=== PATIENT | male | born 1965 | race African-American/Black ===

== ENCOUNTER 2016-06-04 04:33 | Emergency (ER) | payer MEDICAID ==
[~2016-06-04] VITALS: Ht 175.3 cm; Wt 69.0 kg
[2016-06-04 04:44] VITALS: BP 157/92
[2016-06-04] MEDS ORDERED: VISCOUS LIDOCAINE 2% 15 ML UDC PO STA (05:03)
[2016-06-04] MEDS ORDERED: MAGNESIUM/ALUMINUM HYDROXIDE/SIMETHICONE 30ML UDC PO STA (05:03)
[2016-06-04] MEDS ORDERED: DICYCLOMINE 10 MG/5 ML ORAL SYR PO STA (05:03)
[2016-06-04] MEDS ORDERED: ONDANSETRON 4MG ODT PO STA (05:03)
[2016-06-04] MEDS ORDERED: CYCLOBENZAPRINE 10MG TABLET PO ONE (05:45)
== END 2016-06-04 05:56 | disposition home or self-care (01) ==
LOC: ER 04:40
DX: K21.9 Gastro-esophageal reflux disease without esophagitis (principal); I10 Essential (primary) hypertension; F17.200 Nicotine dependence, unspecified, uncomplicated; F31.9 Bipolar disorder, unspecified; F12.10 Cannabis abuse, uncomplicated; Z98.890 Other specified postprocedural states
CPT/HCPCS: 99284; Q0162

== ENCOUNTER 2016-06-20 02:59 | Emergency (ER) | payer MEDICAID ==
[~2016-06-20] VITALS: Ht 172.7 cm; Wt 68.4 kg
[2016-06-20 04:08] VITALS: BP 152/87
[2016-06-20 04:13] LABS: BASOPHILS % 1.3 % (0.0-2.0); EOSINOPHILS % 3.6 % (0.0-5.0); HEMATOCRIT. 44.6 % (42.0-52.0); HEMOGLOBIN. 14.6 g/dL (14.0-18.0); LYMPHOCYTES % 31.8 % (20.0-50.0); MEAN CORPUSCULAR HEMOGLOBIN 31.6 pg (28.0-32.0); MEAN CORPUSCULAR HGB CONC 32.9 g/dL (31.0-37.0); MEAN CORPUSCULAR VOLUME 96.1 fL (80.0-94.0); MEAN PLATELET VOLUME 7.4 fl (7.4-10.4); MONOCYTES % 11.1 % (2.0-8.0); NEUTROPHILS % 52.2 % (40.0-76.0); PLATELET 239 x1000/uL (130-400); RED BLOOD CELL COUNT 4.64 mill/uL (4.7-6.1); RED CELL DISTRIBUTION WIDTH 13.6 % (11.6-14.6); WHITE BLOOD COUNT 6.7 x1000/uL (4.5-11.0)
[2016-06-20 04:19] LABS: PROTHROMBIN TIME 10.6 sec
[2016-06-20 04:28] LABS: ALANINE AMINOTRANSFERASE 20 IU/L (13-61); ALBUMIN 3.6 g/dL (3.4-5.0); ANION GAP 12; CALCIUM 8.5 mg/dL (8.5-10.1); CARBON DIOXIDE 26 mEq/L (21-32); CHLORIDE 110 mEq/L (98-107); INDEX HEMOLYSI 1 (1-3); INDEX ICTERIC 1 (1-4); INDEX LIPEMIC 1 (1-3); LIPASE 155 IU/L (73-393); TROPONIN I < 0.02 ng/mL (0.00-0.04); UREA NITROGEN BLOOD 16 mg/dL (7-21); eGFR > 60 mL/min (>60)
== END 2016-06-20 05:52 | disposition left against medical advice (07) ==
LOC: ER 05:52
DX: R07.89 Other chest pain (principal); Z53.21 Procedure and treatment not carried out due to patient leaving prior to being seen by health care provider
CPT/HCPCS: 36415; 71010; 80053; 83690; 84484; 85025; 85610; Z7610

== ENCOUNTER 2016-07-31 03:02 | Emergency (ER) | payer MEDICAID ==
[~2016-07-31] VITALS: Ht 172.7 cm; Wt 72.7 kg
[2016-07-31 03:09] VITALS: BP 152/97
[2016-07-31] MEDS ORDERED: ONDANSETRON HCL 4MG/2ML VIAL IV STA (04:19)
[2016-07-31] MEDS ORDERED: KETOROLAC 30MG/ML VIAL IV STA (04:19)
[2016-07-31] MEDS ORDERED: SODIUM CHLORIDE 0.9% 1,000 ML IV ONE (04:19)
[2016-07-31 04:38] LABS: BASOPHILS % 0.9 % (0.0-2.0); HEMATOCRIT. 40.6 % (42.0-52.0); HEMOGLOBIN. 13.4 g/dL (14.0-18.0); LYMPHOCYTES % 27.6 % (20.0-50.0); MEAN CORPUSCULAR HEMOGLOBIN 31.2 pg (28.0-32.0); MEAN CORPUSCULAR VOLUME 94.3 fL (80.0-94.0); MEAN PLATELET VOLUME 7.4 fl (7.4-10.4); MONOCYTES % 11.5 % (2.0-8.0); PLATELET 261 x1000/uL (130-400); RED CELL DISTRIBUTION WIDTH 13.8 % (11.6-14.6); WHITE BLOOD COUNT 7.3 x1000/uL (4.5-11.0)
[2016-07-31 04:43] LABS: CHLORIDE 109 mEq/L (98-107); INDEX HEMOLYSI 1 (1-3); INDEX ICTERIC 1 (1-4); INDEX LIPEMIC 1 (1-3)
[2016-07-31 04:59] LABS: ALBUMIN 3.6 g/dL (3.4-5.0); ANION GAP 9; CALCIUM 8.3 mg/dL (8.5-10.1); CARBON DIOXIDE 28 mEq/L (21-32); LIPASE 102 IU/L (73-393); UREA NITROGEN BLOOD 16 mg/dL (7-21); eGFR > 60 mL/min (>60)
[2016-07-31 05:02] LABS: ALANINE AMINOTRANSFERASE 18 IU/L (13-61)
== END 2016-07-31 06:17 | disposition home or self-care (01) ==
LOC: ER 03:03
DX: R10.13 Epigastric pain (principal); K08.89 Other specified disorders of teeth and supporting structures; E11.9 Type 2 diabetes mellitus without complications; F31.9 Bipolar disorder, unspecified; F17.210 Nicotine dependence, cigarettes, uncomplicated; F12.10 Cannabis abuse, uncomplicated
CPT/HCPCS: 36415; 74000; 80053; 83690; 85025; 96361; 96374; 96375; 99285; J1885; J2405; J7030; Z7610

== ENCOUNTER 2025-01-07 19:16 | Inpatient (IN) | payer BC, MEDICAID ==
[~2025-01-07] VITALS: Ht 175.3 cm; Wt 68.0 kg
[2025-01-07 21:04] LABS: BASOPHILS % 1.6 % (0.0-2.0); EOSINOPHILS % 0.6 % (0.0-5.0); HEMATOCRIT. 36.7 % (42.0-52.0); HEMOGLOBIN. 12.3 g/dL (14.0-18.0); LYMPHOCYTES % 14.2 % (20.0-50.0); MEAN PLATELET VOLUME 7.2 fl (7.4-10.4); MONOCYTES % 5.9 % (2.0-8.0); NEUTROPHILS % 77.7 % (40.0-76.0); PLATELET 339 x1000/uL (130-400); RED BLOOD CELL COUNT 3.86 mill/uL (4.7-6.1); RED CELL DISTRIBUTION WIDTH 14.1 % (11.6-14.6)
[2025-01-07] MEDS ORDERED: METHYLPREDNISOLONE 40MG/ML INJ IV ONE (21:15)
[2025-01-07] MEDS ORDERED: IPRATROPIUM/ALBUTEROL 0.5-3(2.5)MG/3ML NEB HHN ONE (21:15)
[2025-01-07 21:21] LABS: CREATININE 1.0 mg/dL (0.6-1.3); UREA NITROGEN BLOOD 13 mg/dL (9-23)
[2025-01-07 21:22] LABS: TROPONIN I HIGH SENSITIVITY 9 ng/L (3.0-53)
[2025-01-07 22:14] LABS: ASPARTATE AMINOTRANSFERASE 16 IU/L (<34); BILIRUBIN DIRECT < 0.1 mg/dL (<=3.0); BILIRUBIN TOTAL 0.3 mg/dL (0.1-1.0); PROTEIN TOTAL 6.1 g/dL (6.0-8.3)
[2025-01-07] MEDS: METHYLPREDNISOLONE SOD SUCC 125MG/2ML (ACT-O-VIAL) IM NR (22:58)
[2025-01-07 23:05] VITALS: PULSE 84; RESP 22; O2SAT 96
[2025-01-07] MEDS: IPRATROPIUM/ALBUTEROL 0.5-3(2.5)MG/3ML NEB HHN NR (23:05)
[2025-01-08 04:03] VITALS: BP 128/77; PULSE 73; RESP 20; TEMP 36.3; O2SAT 96
[2025-01-08 04:07] VITALS: BP 128/77; PULSE 73; RESP 20; TEMP 36.4736
[2025-01-08] MEDS ORDERED: IPRATROPIUM/ALBUTEROL 0.5-3(2.5)MG/3ML NEB HHN PRN (06:15)
[2025-01-08] MEDS: PANTOPRAZOLE 40MG DR TABLET PO SCH (06:43)
[2025-01-08 08:00] VITALS: BP 126/79; PULSE 81; RESP 19; TEMP 36.5; O2SAT 99
[2025-01-08] MEDS: METHYLPREDNISOLONE SOD SUCC 40MG/ML (ACT-O-VIAL) IV SCH (10:04)
[2025-01-08 11:18] LABS: BASOPHILS % 0.3 % (0.0-2.0); EOSINOPHILS % 0.0 % (0.0-5.0); HEMATOCRIT. 36.5 % (42.0-52.0); HEMOGLOBIN. 11.9 g/dL (14.0-18.0); LYMPHOCYTES % 9.9 % (20.0-50.0); MEAN PLATELET VOLUME 7.1 fl (7.4-10.4); MONOCYTES % 4.5 % (2.0-8.0); NEUTROPHILS % 85.3 % (40.0-76.0); PLATELET 322 x1000/uL (130-400); RED BLOOD CELL COUNT 3.78 mill/uL (4.7-6.1); RED CELL DISTRIBUTION WIDTH 14.2 % (11.6-14.6)
[2025-01-08 11:31] LABS: CREATININE 0.8 mg/dL (0.6-1.3); UREA NITROGEN BLOOD 10 mg/dL (9-23)
[2025-01-08 11:32] LABS: TROPONIN I HIGH SENSITIVITY 5 ng/L (3.0-53)
[2025-01-08 12:00] VITALS: BP 114/68; PULSE 71; RESP 18; TEMP 35.7; O2SAT 98
[2025-01-08 20:00] VITALS: BP 121/70; PULSE 70; RESP 18; TEMP 36.3; O2SAT 99
[2025-01-08] MEDS: ENOXAPARIN 40MG/0.4ML SYR SUBCUT SCH (20:00)
[2025-01-08 22:06] LABS: TROPONIN I HIGH SENSITIVITY 4 ng/L (3.0-53)
[2025-01-09 04:00] VITALS: BP 122/73; PULSE 68; RESP 18; TEMP 36.1; O2SAT 97
[2025-01-09 08:00] VITALS: BP 118/84; PULSE 70; RESP 20; TEMP 36.4; O2SAT 96
[2025-01-09 12:00] VITALS: BP 116/79; PULSE 85; RESP 20; TEMP 36.4; O2SAT 97
[2025-01-09 15:49] VITALS: PULSE 80; RESP 18
[2025-01-09 16:00] VITALS: BP 118/74; PULSE 69; TEMP 36.6; O2SAT 97
[2025-01-09 20:00] VITALS: BP 101/71; PULSE 60; TEMP 36.4; O2SAT 98
[2025-01-10] VITALS: BP 110/60; PULSE 66; RESP 18; TEMP 36.5; O2SAT 98
[2025-01-10 04:00] VITALS: BP 127/90; PULSE 65; RESP 18; TEMP 36.3; O2SAT 97
[2025-01-10] MEDS ORDERED: METH4TAB95 MT (12:43)
[2025-01-10] MEDS ORDERED: ALBU18HF2 IH (12:43)
[2025-01-10] MEDS ORDERED: FAMO20TA8 MT (12:43)
[2025-01-10] MEDS ORDERED: FLUT1DIS3 INH (12:44)
[2025-01-10 14:31] VITALS: BP 118/84; PULSE 85; TEMP 97.2
== END 2025-01-10 15:00 | disposition home or self-care (01) | DRG 133 ==
LOC: ER 19:16 → 8WST 01-08 01:10 → EDBEDREQ 01-08 01:15 → EDBEDREQTM 01-08 01:15 → ENRESERV 01-08 02:43 → CANRESERV 01-08 02:43 → ENRESERV 01-08 02:49
PROVIDERS: ADMIT Internal Medicine; ATTEND Internal Medicine
DX: J96.00 Acute respiratory failure, unspecified whether with hypoxia or hypercapnia (principal); J44.1 Chronic obstructive pulmonary disease with (acute) exacerbation; D72.829 Elevated white blood cell count, unspecified; E11.9 Type 2 diabetes mellitus without complications; F17.200 Nicotine dependence, unspecified, uncomplicated; F31.9 Bipolar disorder, unspecified; I10 Essential (primary) hypertension; M32.9 Systemic lupus erythematosus, unspecified; Z79.899 Other long term (current) drug therapy
CPT/HCPCS: 36415; 71045; 80048; 80076; 82962; 83735; 83880; 84145; 84484; 85025; 93005; 94070; 94640; 94664; 96372; 99285; J1650; J2919

== ENCOUNTER 2025-02-16 04:56 | Emergency (ER) | payer MEDICAID ==
[~2025-02-16] VITALS: Ht 175.3 cm; Wt 72.8 kg
[~2025-02-16 04:56] MED LIST: ALBU18HF2 IH; FAMO20TA8 MT; FLUT1DIS3 INH; METH4TAB95 MT
[2025-02-16 05:00] VITALS: O2SAT 95
[2025-02-16 05:08] VITALS: BP 135/88; PULSE 70; RESP 18; TEMP 36.6; O2SAT 99
[2025-02-16 06:58] LABS: BASOPHILS % 2.2 % (0.0-2.0); EOSINOPHILS % 1.5 % (0.0-5.0); HEMATOCRIT. 40.7 % (42.0-52.0); HEMOGLOBIN. 13.2 g/dL (14.0-18.0); LYMPHOCYTES % 29.3 % (20.0-50.0); MEAN PLATELET VOLUME 7.6 fl (7.4-10.4); MONOCYTES % 11.4 % (2.0-8.0); NEUTROPHILS % 55.6 % (40.0-76.0); PLATELET 240 x1000/uL (130-400); RED BLOOD CELL COUNT 4.21 mill/uL (4.7-6.1); RED CELL DISTRIBUTION WIDTH 14.7 % (11.6-14.6)
[2025-02-16 07:07] LABS: INR 1.0
[2025-02-16 07:23] LABS: CREATININE 0.8 mg/dL (0.6-1.3); UREA NITROGEN BLOOD 11 mg/dL (9-23)
[2025-02-16 07:25] LABS: ASPARTATE AMINOTRANSFERASE 17 IU/L (<34); BILIRUBIN DIRECT < 0.1 mg/dL (<=3.0); TROPONIN I HIGH SENSITIVITY 5 ng/L (3.0-53)
[2025-02-16 07:26] LABS: BILIRUBIN TOTAL 0.3 mg/dL (0.1-1.0); PROTEIN TOTAL 6.4 g/dL (6.0-8.3)
== END 2025-02-16 07:58 | disposition left against medical advice (07) ==
LOC: ER 04:56 → CMPBEDREQ 08:05
DX: I50.9 Heart failure, unspecified (principal); F12.10 Cannabis abuse, uncomplicated; E11.9 Type 2 diabetes mellitus without complications; F31.9 Bipolar disorder, unspecified; J45.909 Unspecified asthma, uncomplicated; M19.90 Unspecified osteoarthritis, unspecified site; Z79.51 Long term (current) use of inhaled steroids
CPT/HCPCS: 36415; 80048; 80076; 83735; 83880; 84484; 85025; 99283